=== PATIENT | female | born 1945 | race Caucasian/White ===

== ENCOUNTER → 2016-12-29 | Outpatient (CLI) | payer MEDICARE, OTHER ==
--- NOTE | 2016-12-30 07:55 | US ---
EXAMINATION TYPE: US carotid duplex BILAT DATE OF EXAM: 12/29/2016 4:50 PM COMPARISON: NONE CLINICAL HISTORY: I65.23 Stenosis of Bilat Carotid Artery. Patient states being in a 'brain fog' and feeling fatigue. EXAM MEASUREMENTS: RIGHT: Peak Systolic Velocity (PSV) cm/sec ----- Right CCA: 72.9 ----- Right ICA: 61.6 ----- Right ECA: 85.3 ICA/CCA ratio: 0.8 RIGHT: End Diastole cm/sec ----- Right CCA: 22.3 ----- Right ICA: 26.1 ----- Right ECA: 16.0 LEFT: Peak Systolic Velocity (PSV) cm/sec ----- Left CCA: 67.7 ----- Left ICA: 19.7 ----- Left ECA: 65.3 ICA/CCA ratio: 1.5 LEFT: End Diastole cm/sec ----- Left CCA: 19.7 ----- Left ICA: 103.4 ----- Left ECA: 65.3 VERTEBRALS (direction of flow): Right Vertebral: Antegrade Left Vertebral: Antegrade Small amount of posterior plaque in right bulb extending into prox ICA. Bilateral wall thickening. No elevated velocities or significant stenosis. IMPRESSION: I DO NOT SEE EVIDENCE OF A HEMODYNAMICALLY SIGNIFICANT STENOSIS IN EITHER CAROTID SYSTEM. Criteria for Assigning % of Stenosis / Diameter reduction (Estimation based on the indirect measurements of the internal carotid artery velocities (ICA PSV). 1. Normal (no stenosis)=ICA PSV < 125 cm/s: ratio < 2.0: ICA EDV<40 cm/s. 2. Less than 50% stenosis=ICA PSV < 125 cm/s: ratio < 2.0: ICA EDV<40 cm/s. 3. 50 to 69% stenosis=ICA PSV of 125 to 230 cm/s: ration 2.0 ? 4.0: ICA EDV 40-100 cm/s. 4. Greater than 70% stenosis to near occlusion= ICA PSV > 230 cm/s: ratio > 4.0: ICA EDV > 100 cm/s. 5. Near occlusion= ICA PSV velocities may be low or undetectable: variable ratio and ICA EDV. 6. Total occlusion=unable to detect flow.
== END | disposition home or self-care (01) ==
LOC: RADUSWWP 15:53
PROVIDERS: ATTEND Internal Medicine
DX: I65.23 Occlusion and stenosis of bilateral carotid arteries (principal)
CPT/HCPCS: 93880

== ENCOUNTER → 2019-06-29 | Outpatient (CLI) | payer MEDICARE, OTHER ==
--- NOTE | 2019-06-29 17:32 | CT ---
EXAMINATION TYPE: CT abdomen pelvis w con DATE OF EXAM: 06/29/2019 COMPARISON: HISTORY: diverticulitis CT DLP: 450.4 mGycm Automated exposure control for dose reduction was used. CONTRAST: CT scan of the abdomen pelvis is performed with IV Contrast, patient injected with 100 mL of Isovue 3 00. FINDINGS- LUNG BASES-there is an 8 and 6 mm nodule seen in the anterior segment of the right upper lobe. Dedica charles CT scan of the chest recommended. Additional subsegmental areas of consolidation are noted. Heart is enlarged.. LIVER/GB- No gross abnormality is appreciated. PANCREAS- No gross abnormality is seen. SPLEEN- No gross abnormality is seen. ADRENALS- No gross abnormality is seen. KIDNEYS/BLADDER- no hydronephrosis nephrolithiasis or renal mass. BOWEL-there is numerous diverticula seen with mild pericolonic inflammatory changes seen involving th e descending colon in a pattern compatible with acute diverticulitis. Mild thickening of the gastric antrum is nonspecific.. Report called by telephone to the referring clinician. LYMPH NODES- No greater than 1cm abdominal or pelvic lymph nodes areappreciated. OSSEOUS STRUCTURES-degenerative changes of the vertebral column. Arthropathy of the hips.. Multilevel facet arthropathy disc bulging with canal stenosis is identified at L4-L5. OTHER- no free fluid or free air. IMPRESSION- 1. Acute noncomplicated diverticulitis descending colon. 2. Degenerative changes involving the vertebral column greatest at L4-5. There is mixed sclerosis and lucent changes. Intraosseous or marrow occupying process not excluded consider bone scan.
== END | disposition home or self-care (01) ==
LOC: RADCTMAIN 12:57
PROVIDERS: ATTEND Internal Medicine
DX: K57.32 Diverticulitis of large intestine without perforation or abscess without bleeding (principal)
CPT/HCPCS: 74177; Q9967 ×2

== ENCOUNTER → 2020-12-03 | Outpatient (CLI) | payer MEDICARE, OTHER ==
--- NOTE | 2020-12-03 14:33 | XR ---
EXAMINATION TYPE: XR cervical spine comp DATE OF EXAM: 12/03/2020 COMPARISON: 10/14/2014 HISTORY: Pain TECHNIQUE: 5 view cervical spine FINDINGS: Degenerative disc changes with loss of disc height are present C4-5 C5-6 C6-7. Prevertebral space is normal. Anterior vertebral body spurring is present C4-C6. Posterior spinal lamellar line i s intact. Foraminal narrowing is present on the left at C6-7. Mild foraminal narrowing is present at C5-C6 on the right. Tip of the odontoid is limited due to overlying occiput. IMPRESSION: 1. Degenerative disc changes C4-5 through C6-7. 2. Foraminal narrowing C5-6 C6-7 discussed above. 3. Findings appear stable from 2014
== END ==
LOC: RADXRMAIN 13:53
PROVIDERS: ATTEND Internal Medicine
DX: M47.812 Spondylosis without myelopathy or radiculopathy, cervical region (principal); M99.71 Connective tissue and disc stenosis of intervertebral foramina of cervical region
CPT/HCPCS: 72050

== ENCOUNTER 2021-01-02 15:52 | Inpatient (IN) | payer MEDICARE, OTHER ==
[2021-01-02] MEDS ORDERED: FAMOTIDINE 20 MG/2 ML VIAL IV STA (17:19)
[2021-01-02] MEDS ORDERED: SODIUM CHLORIDE 0.9% 1,000 ML IV STA (17:19)
[2021-01-02] MEDS ORDERED: ONDANSETRON 4 MG/2 ML VIAL IVP STA (17:19)
--- NOTE | 2021-01-02 17:37 | XR ---
EXAMINATION TYPE: XR chest 1V DATE OF EXAM: 01/02/2021 COMPARISON: NONE HISTORY: Cough TECHNIQUE: Single view FINDINGS: There is some infiltrate and atelectasis right lower lobe. There is small area of infiltrat e and atelectasis left lower lobe. Upper lung dodson are clear. There are no hilar masses. There is n o heart failure. There is no pleural effusion. Bony thorax is intact. IMPRESSION: Bilateral lower lobe pneumonia and atelectasis. No heart failure.
[2021-01-02 17:58] LABS: Basophils % (A) 1 %; Eosinophils % (A) 0 %; HCT 40.5 % (34.0-46.0); HGB 14.5 gm/dL (11.4-16.0); Lymphocytes # (A) 0.9 k/uL (1.0-4.8); Lymphocytes % (A) 15 %; MCH 31.4 pg (25.0-35.0); MCHC 35.8 g/dL (31.0-37.0); MCV 87.6 fL (80.0-100.0); Mean Platelet Volume 8.5; Monocytes # (A) 0.3 k/uL (0-1.0); Monocytes % (A) 6 %; Neutrophils # (A) 4.4 k/uL (1.3-7.7); Neutrophils % (A) 76 %; Platelet Count 185 k/uL (150-450); RBC 4.62 m/uL (3.80-5.40); RDW 11.9 % (11.5-15.5); WBC 5.8 k/uL (3.8-10.6)
[2021-01-02 18:09] LABS: ALT 23 U/L (4-34); AST 54 U/L (14-36); African American GFR (CKD) >90 (>60 ml/min/1.73 sqM); Albumin 3.8 g/dL (3.5-5.0); Alkaline Phosphatase 80 U/L (38-126); Anion Gap 8 mmol/L; Blood Urea Nitrogen 24 mg/dL (7-17); C Reactive Protein 8.8 mg/dL (<1.0); Calcium 9.2 mg/dL (8.4-10.2); Carbon Dioxide 26 mmol/L (22-30); Chloride 103 mmol/L (98-107); Glucose 97 mg/dL (74-99); LDH 1261 U/L (313-618); Lipase 375 U/L (23-300); Non-African American GFR(CKD) 86 (>60 ml/min/1.73 sqM); Potassium 4.1 mmol/L (3.5-5.1); Sodium 137 mmol/L (137-145); Total Bilirubin 0.3 mg/dL (0.2-1.3); Total Protein 6.4 g/dL (6.3-8.2)
--- NOTE | 2021-01-02 19:56 | ED ---
URI HPI - General Source: patient Mode of arrival: ambulatory Limitations: no limitations <Radha Alvarez - Last Filed: 01/02/21 21:05> <Korin Alberts - Last Filed: 01/05/21 02:24> - General Chief Complaint: Upper Respiratory Infection Stated Complaint: Covid+, worsening symptoms Time Seen by Provider: 01/02/21 17:06 - History of Present Illness Initial Comments: 75-year-old female patient presents to the emergency department today for evaluation of worsening COVID-19 symptoms. Patient is reporting fatigue and body aches. She also reporting significant nausea and vomiting. Denies diarrhea. States she's been unable to eat or drink. States she does have a cough and mild shortness of breath. Denies any fevers. States she started having symptoms approximately 11-12 days ago, maybe more. Tested positive for COVID on 12/29/20. Denies taking any medication for her symptoms. Denies abdominal pain. Denies any urinary symptoms. Patient denies any recent rash, cough, shortness of breath, chest pain, abdominal pain, constipation, back pain, numbness, tingling, dizziness, weakness, hematuria, dysuria, urinary urgency, urinary frequency, headache, visual changes, or any other complaints. (Radha Alvarez) - Related Data Home Medications Medication Instructions Recorded Confirmed Baclofen [Lioresal] 10 mg PO BID 01/02/21 01/02/21 Cholecalciferol [Vitamin D3 (25 25 mcg PO DAILY 01/02/21 01/02/21 Mcg = 1000 Iu)] Gabapentin 600 mg PO HS 01/02/21 01/02/21 Gabapentin [Neurontin] 300 mg PO DAILY PRN 01/02/21 01/02/21 Glucosam/Solo-Msm1/C/Filippo/Bosw 1 tab PO DAILY 01/02/21 01/02/21 [Oacyikuxzft-Dtfadzqhsin-SUV Tb] Levothyroxine Sodium [Synthroid] 75 mcg PO DAILY 01/02/21 01/02/21 Multivitamins, Thera [Multivitamin 1 tab PO DAILY 01/02/21 01/02/21 (formulary)] Zinc 50 mg PO DAILY 01/02/21 01/02/21 Allergies Allergy/AdvReac Type Severity Reaction Status Date / Time No Known Allergies Allergy Verified 01/02/21 19:22 Review of Systems ROS Other: All systems not noted in ROS Statement are negative. <Radha Alvarez - Last Filed: 01/02/21 21:05> ROS Other: All systems not noted in ROS Statement are negative. <Korin Alberts Ita - Last Filed: 01/05/21 02:24> ROS Statement: Those systems with pertinent positive or pertinent negative responses have been documented in the HPI. Past Medical History Past Medical History: Thyroid Disorder History of Any Multi-Drug Resistant Organisms: None Reported Past Surgical History: Hysterectomy Past Psychological History: Anxiety Smoking Status: Never smoker Past Alcohol Use History: None Reported Past Drug Use History: None Reported <Radha Alvarez - Last Filed: 01/02/21 21:05> General Exam Limitations: no limitations General appearance: alert, in no apparent distress, other (This is a well- developed, well-nourished adult female patient in no acute distress. Vital signs upon presentation are temperature 98.4F, pulse 101, respirations 18, blood pressure 129/72, pulse ox 95% on room air.) Eye exam: Present: normal appearance, PERRL, EOMI. Absent: scleral icterus, conjunctival injection, periorbital swelling ENT exam: Present: normal exam, normal oropharynx, mucous membranes moist Respiratory exam: Present: normal lung sounds bilaterally. Absent: respiratory distress, wheezes, rales, rhonchi, stridor Cardiovascular Exam: Present: regular rate, normal rhythm, normal heart sounds. Absent: systolic murmur, diastolic murmur, rubs, gallop, clicks GI/Abdominal exam: Present: soft, normal bowel sounds. Absent: distended, tenderness, guarding, rebound, rigid Neurological exam: Present: alert, oriented X3, CN II-XII intact Psychiatric exam: Present: normal affect, normal mood Skin exam: Present: warm, dry, intact, normal color. Absent: rash <Radha Alvarez - Last Filed: 01/02/21 21:05> Course Vital Signs 01/02/21 01/02/21 01/02/21 16:05 19:59 21:20 Temperature 98.4 F 100.8 F H 98.0 F Pulse Rate 101 H 99 Pulse Rate [ 81 Left Radial] Respiratory 18 18 19 Rate Blood Pressure 129/72 143/66 Blood Pressure 126/58 [Left Arm] O2 Sat by Pulse 95 99 95 Oximetry 01/02/21 21:51 Temperature 98.2 F Pulse Rate 92 Pulse Rate [ Left Radial] Respiratory 18 Rate Blood Pressure 121/63 Blood Pressure [Left Arm] O2 Sat by Pulse 95 Oximetry Medical Decision Making - Lab Data Result diagrams: 01/02/21 17:37 01/02/21 17:37 - Radiology Data Radiology results: report reviewed, image reviewed <Radha Alvarez - Last Filed: 01/02/21 21:05> - Lab Data Result diagrams: 01/04/21 05:59 01/04/21 05:59 <Korin Alberts - Last Filed: 01/05/21 02:24> - Medical Decision Making 75-year-old female patient presents to the emergency department today reporting worsening nausea and vomiting as well as fatigue and body aches. Physical examination is unremarkable. Abdomen soft and nontender. Lungs are clear to auscultation. Vital signs are satisfactory oxygen saturations between 95 and 99% on room air. Labs reviewed showed elevated CRP and LDH. Elevated BUN at 24. Chest xray showed bilateral lower lobe pneumonia. She was given IV fluids and antiemetics in the department. Reports being hungry, tolerating oral intake. Dr. Abreu became aware of patient and requested notification once test results were in. I discussed the case with him. He would like her admitted, add d-dimer, CTA chest, give dexamethasone. My attending is Dr. Alberts. (Radha Alvarez) I was available for consultation in the emergency department. The history and physical exam were done by the midlevel provider. I was consulted for this patients care. I reviewed the case with the midlevel provider and based on their presentation of the patient, I agree with the assessment, medical decision making and plan of care as documented. Chart was dictated using [employer] dictation software. Attempts were made to correct any dictation errors however some typographical errors may persist. Patient was seen during a national state of emergency due to the Covid-19 pandemic. (Korin Alberts) - Lab Data Lab Results 01/02/21 01/02/21 01/02/21 Range/Units 17:37 17:37 17:37 WBC 5.8 (3.8-10.6) k/uL RBC 4.62 (3.80-5.40) m/uL Hgb 14.5 (11.4-16.0) gm/dL Hct 40.5 (34.0-46.0) % MCV 87.6 (80.0-100.0) fL MCH 31.4 (25.0-35.0) pg MCHC 35.8 (31.0-37.0) g/dL RDW 11.9 (11.5-15.5) % Plt Count 185 (150-450) k/uL MPV 8.5 Neutrophils % 76 % Lymphocytes % 15 % Monocytes % 6 % Eosinophils % 0 % Basophils % 1 % Neutrophils # 4.4 (1.3-7.7) k/uL Lymphocytes # 0.9 L (1.0-4.8) k/uL Monocytes # 0.3 (0-1.0) k/uL Eosinophils # 0.0 (0-0.7) k/uL Basophils # 0.0 (0-0.2) k/uL D-Dimer (<0.60) mg/L FEU Sodium 137 (137-145) mmol/L Potassium 4.1 (3.5-5.1) mmol/L Chloride 103 (98-107) mmol/L Carbon Dioxide 26 (22-30) mmol/L Anion Gap 8 mmol/L BUN 24 H (7-17) mg/dL Creatinine 0.67 (0.52-1.04) mg/dL Est GFR (CKD-EPI)AfAm >90 (>60 ml/min/1.73 sqM) Est GFR (CKD-EPI)NonAf 86 (>60 ml/min/1.73 sqM) Glucose 97 (74-99) mg/dL Plasma Lactic Acid Eric 0.7 (0.7-2.0) mmol/L Calcium 9.2 (8.4-10.2) mg/dL Total Bilirubin 0.3 (0.2-1.3) mg/dL AST 54 H (14-36) U/L ALT 23 (4-34) U/L Alkaline Phosphatase 80 (38-126) U/L Lactate Dehydrogenase 1261 H (313-618) U/L C-Reactive Protein 8.8 H (<1.0) mg/dL Total Protein 6.4 (6.3-8.2) g/dL Albumin 3.8 (3.5-5.0) g/dL Lipase 375 H (23-300) U/L Urine Color Urine Appearance (Clear) Urine pH (5.0-8.0) Ur Specific [place] (1.001-1.035) Urine Protein (Negative) Urine Glucose (UA) (Negative) Urine Ketones (Negative) Urine Blood (Negative) Urine Nitrite (Negative) Urine Bilirubin (Negative) Urine Urobilinogen (<2.0) mg/dL Ur Leukocyte Esterase (Negative) Coronavirus (PCR) (Not Detectd) 01/02/21 01/02/21 01/02/21 Range/Units 17:43 20:19 20:19 WBC (3.8-10.6) k/uL RBC (3.80-5.40) m/uL Hgb (11.4-16.0) gm/dL Hct (34.0-46.0) % MCV (80.0-100.0) fL MCH (25.0-35.0) pg MCHC (31.0-37.0) g/dL RDW (11.5-15.5) % Plt Count (150-450) k/uL MPV Neutrophils % % Lymphocytes % % Monocytes % % Eosinophils % % Basophils % % Neutrophils # (1.3-7.7) k/uL Lymphocytes # (1.0-4.8) k/uL Monocytes # (0-1.0) k/uL Eosinophils # (0-0.7) k/uL Basophils # (0-0.2) k/uL D-Dimer 1.13 H (<0.60) mg/L FEU Sodium (137-145) mmol/L Potassium (3.5-5.1) mmol/L Chloride (98-107) mmol/L Carbon Dioxide (22-30) mmol/L Anion Gap mmol/L BUN (7-17) mg/dL Creatinine (0.52-1.04) mg/dL Est GFR (CKD-EPI)AfAm (>60 ml/min/1.73 sqM) Est GFR (CKD-EPI)NonAf (>60 ml/min/1.73 sqM) Glucose (74-99) mg/dL Plasma Lactic Acid Eric (0.7-2.0) mmol/L Calcium (8.4-10.2) mg/dL Total Bilirubin (0.2-1.3) mg/dL AST (14-36) U/L ALT (4-34) U/L Alkaline Phosphatase (38-126) U/L Lactate Dehydrogenase (313-618) U/L C-Reactive Protein (<1.0) mg/dL Total Protein (6.3-8.2) g/dL Albumin (3.5-5.0) g/dL Lipase (23-300) U/L Urine Color Yellow Urine Appearance Clear (Clear) Urine pH 6.0 (5.0-8.0) Ur Specific [place] 1.019 (1.001-1.035) Urine Protein Negative (Negative) Urine Glucose (UA) Negative (Negative) Urine Ketones 2+ H (Negative) Urine Blood Negative (Negative) Urine Nitrite Negative (Negative) Urine Bilirubin Negative (Negative) Urine Urobilinogen <2.0 (<2.0) mg/dL Ur Leukocyte Esterase Negative (Negative) Coronavirus (PCR) Detected A (Not Detectd) - Radiology Data CT chest angiography of a pulmonary embolus and was obtained. Report was reviewed in its entirety. Impression by Dr. Pop shows no evidence of pulmonary embolism. Cardiomegaly. Pulmonary interstitial pneumonia. Mild mediastinal and bronchial adenopathy is likely inflammatory. One view x-ray of the chest is obtained. Report was reviewed in its entirety. Impression by Dr. Pop shows bilateral lower lobe pneumonia and atelectasis. No heart failure. (Radha Alvarez) Disposition Decision to Admit Reason: Admit from EC Decision Date: 01/02/21 Decision Time: 20:21 <Radha Alvarez - Last Filed: 01/02/21 21:05> <Korin Alberts - Last Filed: 01/05/21 02:24> Clinical Impression: COVID-19, Vomiting Disposition: ADMITTED IP TO THIS [facility] Condition: Serious
[2021-01-02] MEDS ORDERED: ACETAMINOPHEN TAB 325 MG TAB PO STA (20:03)
[2021-01-02] MEDS ORDERED: NALOXONE 0.4 MG/ML 1 ML VIAL IV PRN (20:17)
[2021-01-02] MEDS ORDERED: ONDANSETRON 4 MG/2 ML VIAL IVP PRN (20:17)
[2021-01-02] MEDS ORDERED: ACETAMINOPHEN TAB 325 MG TAB PO PRN (20:17)
[2021-01-02] MEDS ORDERED: DEXAMETHASONE SOD PHOSPHATE 10 MG/ML 1 ML VIAL IV STA (20:18)
[2021-01-02 20:32] LABS: Appearance,Urine Clear (Clear); Bilirubin,Urine Negative (Negative); Blood,Urine Negative (Negative); Color,Urine Yellow; Glucose,Urine (UA) Negative (Negative); Ketones,Urine 2+ (Negative); Leukocyte Esterase,Urine Negative (Negative); Nitrite,Urine Negative (Negative); Protein,Urine Negative (Negative); Specific Gravity,Urine 1.019 (1.001-1.035); Urobilinogen,Urine <2.0 mg/dL (<2.0)
--- NOTE | 2021-01-02 21:00 | CT ---
EXAMINATION TYPE: CT chest angio for PE DATE OF EXAM: 01/02/2021 COMPARISON: None HISTORY: Covid +. Difficulty breathing. CT DLP: 204.9 mGycm Automated exposure control for dose reduction was used. CONTRAST: Performed with IV Contrast, patient injected with 100 mL of Isovue 370. There are 3-D post processed images. There is some pleural thickening and minimal nodular infiltrate at the lung apices. There is patchy g roundglass interstitial infiltrate in the mid and lower lung dodson. Heart is enlarged. There is no p ericardial effusion. Thoracic aorta is intact. There is no aneurysm or dissection. The ascending aorta measures 3.4 cm. Th ere are a few bronchial lymph nodes up to 1 cm. There are paratracheal lymph nodes up to 1.5 cm. There is normal contrast opacification of the pulmonary arteries. There are no filling defects. There is no pleural effusion. Upper abdominal soft tissues are intact. The thoracic spine is intact. There is no compression fracture. Sternum is intact. IMPRESSION: No evidence of pulmonary embolism. Cardiomegaly. Pulmonary interstitial pneumonia. Mild mediastinal and bronchial adenopathy is likely i nflammatory.
[2021-01-02] MEDS: ASCORBIC ACID 500 MG TAB PO SCH (21:48)
[2021-01-02] MEDS: SODIUM CHLORIDE 0.9% 1,000 ML IV SCH (21:48)
[2021-01-03] MEDS: DEXAMETHASONE SOD PHOSPHATE 10 MG/ML 1 ML VIAL IV SCH (08:43)
[2021-01-03] MEDS: ASCORBIC ACID 500 MG TAB PO SCH ×2 (08:43→19:31)
[2021-01-03] MEDS: ZINC SULFATE 220 MG CAP PO SCH (08:44)
[2021-01-03] MEDS ORDERED: CHOLECALCIFEROL 25 MCG (1000 IU) TABLET PO SCH (09:00)
[2021-01-03] MEDS ORDERED: GABAPENTIN 300 MG CAP PO PRN (09:06)
[2021-01-03] MEDS ORDERED: AZITHROMYCIN 500 MG in SODIUM CHLORIDE 0.9% 250 ML IVPB SCH (09:15)
--- NOTE | 2021-01-03 10:24 | P.HPIM ---
History of Present Illness H&P Date: 01/03/21 Chief Complaint: Covid pneumonia. HISTORY OF PRESENT ILLNESS: This is a 75-year-old female one of my patient with a previous medical history significant for hypothyroidism, history of spondylosis of the cervical spine as well as lumbar spine, fibromyalgia, patient developed to have a significant weakness associated with increased bowel pain nausea vomiting and d iarrhea, she has loss of taste and smell she was checked with the SARS-COV2 PCR on Monday that came back positive on , patient was started on zinc 220 mg once every day, vitamin C 500 mg once every day vitamin D 1000 units once every day, she was doing fine drinking enough fluid, however she became quite weak and she ended up coming to the emergency department at [facility] for evaluation her d-dimer was elevated she underwent CT angiography of the chest that showed no evidence of pulmonary embolism however it did show interstitial pneumonia o suggestive of Covid pneumonia, she was started on Zithromax 500 mg IV piggyback every 24 hours, Decadron 6 mg IV push every 24 mil rs, she was placed in droplet precautions with eye protection, pulmonary consultation was obtained as well. REVIEW OF SYSTEMS: Constitutional: No documented fever, no chills, no night sweats. No weight change. Positive for weakness, positive for fatigue. HEENT: No headache. No blurred vision or double vision, no loss of vision. No loss of Hearing, no ringing in the ears, no dizziness. No nasal drainage or congestion. No epistaxis. No sore throat. Respiratory: No shortness of breath, no cough, no sputum production. No wheezing. Reports dyspnea with activity. Cardiovascular: No chest pain, no lower extremity edema. No palpitations. No paroxysmal nocturnal dyspnea. No orthopnea. No lightheadedness or dizziness. No syncopal episodes. Gastrointestinal :Reports abdominal pain. No nausea, vomiting. Positive for diarrhea diarrhea. No constipation. No bloody or tarry stools ,reports loss of appetite. Genitourinary: No dysuria, increased frequency, urgency. No urinary retention. Musculoskeletal: No myalgias. No muscle weakness, no gait dysfunction, no frequent falls. No back pain. No neck pain. Integumentary: No wounds, no lesions. No rash or pruritus. No unusual bruising. No change in hair or nails. Neurologic: No aphasia. No facial droop. No change in mentation. No head injury. No headache. No paralysis. No paresthesia. Psychiatric: No depression. No anxiety. No mood swings. Endocrine: No abnormal blood sugars. No weight change. PAST MEDICAL HISTORY: 1. Hypothyroidism. 2. Fibromyalgia. 3. Spondylosis of the cervical spine and the lumbar spine. 4. Vitamin D deficiency. PAST SURGICAL HISTORY: Hysterectomy. SOCIAL HISTORY: Patient denies any history of smoking, she denies any history of drinking, she denies any drug use or abuse, she left her due to severe case of schizophrenia, she currently lives with significant other, and she is the primary caregiver for him. FAMILY HISTORY: Father at age of 90 from COPD as well as from chronic alcohol use and dependence, mother at the age of 88 from old age, patient had 2 brothers one of them at age of 83 from diabetes and coronary artery disease the oth er one suffers from chronic pain syndrome, patient has one sister with COPD, patient has 2 daughters and 1 son no major medical problems. PHYSICAL EXAMINATION: General: HEENT: Head is atraumatic, normocephalic, pupils were equal round reactive to light and recommendation, extraocular muscle movement were intact, sclera nonicteric, conjunctivae were pale, mucous membranes of the mouth are somewhat dry. Neck: Supple, no JVP, normal carotid upstroke bilaterally, no lymphadenopathy. Chest: Decreased breath sounds at the bases, few rhonchi, no expiratory wheezes, no chest wall tenderness, no intercostal retractions. Heart: First heart sound is normal, second heart sounds normal, there is no ga llop or murmur. Abdomen: Soft, nontender, nondistended, positive bowel sounds, there is no hepatomegaly. Extremities: There is no edema no calf tenderness DP +2 bilaterally. Neurologic examination: Patient is awake alert and oriented X 3, cranial nerves II-12 appear grossly intact, muscle power were 5 out of 5 in upper extremities and 5 out of 5 in bilateral lower extremities, deep tendon reflexes normal bilaterally. ASSESSMENT AND PLAN: 1. COVID-19 pneumonia. Droplet precautions with eye protection, continue zinc 220 mg orally once every day vitamin C 500 mg orally once every day, vitamin D 1000 units once every day, Decadron 6 mg IV push daily, Zithromax 500 mg IV piggyback daily, pulmonary consultation, monitor the patient very closely over the next 24 hours. 2. Hypothyroidism. Continue patient on Synthroid 75 MCG orally once every day. 3. Fibromyalgia. Continue gabapentin 600 mg orally bedtime and 300 mg the morning. 4. Spondylosis of the cervical spine as well as lumbar spine. Continue gabapentin 600 mg at bedtime and 300 mg in the morning. 5. Vitamin D deficiency. Continue vitamin D supplement. 6. DVT prophylaxis. Continue Lovenox 40 mg subcutaneously every 24 hours. 7. GI prophylaxis. Pepcid 20 mg orally twice every day. 8. Admit to inpatient. Estimated length of stay 2 midnights. 9. Patient is full code. Past Medical History Past Medical History: Thyroid Disorder History of Any Multi-Drug Resistant Organisms: None Reported Past Surgical History: Hysterectomy Past Anesthesia/Blood Transfusion Reactions: No Reported Reaction Past Psychological History: Anxiety Smoking Status: Never smoker Past Alcohol Use History: None Reported Past Drug Use History: None Reported Medications and Allergies Home Medications Medication Instructions Recorded Confirmed Type Baclofen [Lioresal] 10 mg PO BID 01/02/21 01/02/21 History Cholecalciferol [Vitamin D3 (25 25 mcg PO DAILY 01/02/21 01/02/21 History Mcg = 1000 Iu)] Gabapentin 600 mg PO HS 01/02/21 01/02/21 History Gabapentin [Neurontin] 300 mg PO DAILY PRN 01/02/21 01/02/21 History Glucosam/[place]-Msm1/C/Filippo/Bosw 1 tab PO DAILY 01/02/21 01/02/21 History [Piboibcpxqx-Btenxaqkvgc-HAK Tb] Levothyroxine Sodium [Synthroid] 75 mcg PO DAILY 01/02/21 01/02/21 History Multivitamins, Thera [Multivitamin 1 tab PO DAILY 01/02/21 01/02/21 History (formulary)] Zinc 50 mg PO DAILY 01/02/21 01/02/21 History Allergies Allergy/AdvReac Type Severity Reaction Status Date / Time No Known Allergies Allergy Verified 01/02/21 19:22 Physical Exam Vitals: Vital Signs Temp Pulse Pulse Resp BP BP Pulse Ox 01/03/21 08:00 98.0 F 94 16 123/60 81 L 01/03/21 02:00 97.8 F 78 19 124/60 94 L 01/02/21 22:57 19 01/02/21 21:51 98.2 F 92 18 121/63 95 01/02/21 21:20 98.0 F 81 19 126/58 95 01/02/21 19:59 100.8 F H 99 18 143/66 99 01/02/21 16:05 98.4 F 101 H 18 129/72 95 Intake and Output 01/02/21 01/03/21 01/03/21 22:59 06:59 14:59 Other: Voiding Method Toilet # Voids 1 Weight 60.781 kg Results CBC & Chem 7: 01/02/21 17:37 01/02/21 17:37 Labs: Abnormal Lab Results - Last 24 Hours (Table) 01/02/21 01/02/21 01/02/21 Range/Units 17:37 17:37 17:43 Lymphocytes # 0.9 L (1.0-4.8) k/uL D-Dimer (<0.60) mg/L FEU BUN 24 H (7-17) mg/dL AST 54 H (14-36) U/L Lactate Dehydrogenase 1261 H (313-618) U/L C-Reactive Protein 8.8 H (<1.0) mg/dL Lipase 375 H (23-300) U/L Urine Ketones 2+ H (Negative) Coronavirus (PCR) (Not Detectd) 01/02/21 01/02/21 Range/Units 20:19 20:19 Lymphocytes # (1.0-4.8) k/uL D-Dimer 1.13 H (<0.60) mg/L FEU BUN (7-17) mg/dL AST (14-36) U/L Lactate Dehydrogenase (313-618) U/L C-Reactive Protein (<1.0) mg/dL Lipase (23-300) U/L Urine Ketones (Negative) Coronavirus (PCR) Detected A (Not Detectd) Thrombosis Risk Factor Assmnt - Choose All That Apply Any of the Below Risk Factors Present?: No Other Risk Factors: No Other congenital or acquired thrombophilia - If yes, enter type in comment: No Thrombosis Risk Factor Assessment Level: Very Low Risk
[2021-01-03] MEDS: BACLOFEN 10 MG TAB PO SCH ×2 (10:54→19:31)
[2021-01-03] MEDS: MULTIVITAMINS, THERA 1 EACH TAB PO SCH (10:54)
[2021-01-03] MEDS: SODIUM CHLORIDE 0.9% 1,000 ML IV SCH ×2 (12:19→23:07)
[2021-01-03] MEDS: ALBUTEROL HFA INHALER INHALATION SCH ×3 (12:44→19:09)
--- NOTE | 2021-01-03 15:30 | P.CNPUL ---
History of Present Illness Consult date: 01/03/21 Reason for consult: dyspnea, hypoxemia, pneumonia History of present illness: 75-year-old female patient hospitalized for COVID-19 related pneumonia and currently she is on Decadron. Pulmonary consultation was requested. The patient was diagnosed being positive on 12/31/2020 at the primary care physician's office. She was given vitamin supplements. She became progressively more weak and she had some increased shortness of breath and for that physician coming into the hospital. CT of the chest showed no evidence of any pulmonary embolism. There was some limited groundglass changes in lung bases bilaterally and the patient was started on Decadron. At one point, pulse ox abdominal to 81% and currently she is at 92% on room air oxygen. Her d-dimer is at 1.13, her LDH level is 1261 and the CRP is at 6.4. She does have lymphopenia on her blood work with a white cell count of 5.8. She is on Decadron. She is on Lovenox for DVT prophylaxis. Review of Systems Constitutional: Reports fatigue, Reports poor appetite, Reports weakness Eyes: denies as per HPI, denies blurred vision, denies bulging eye, denies decreased vision, denies diplopia, denies discharge, denies dry eye, denies irritation, denies itching, denies pain, denies photophobia, denies loss of noris pheral vision, denies loss of vision, denies tunnel vision/blind spots Ears: deny: decreased hearing, ear discharge, earache, tinnitus Ears, nose, mouth and throat: Reports as per HPI Breasts: absent: as per HPI, change in shape, gynecomastia, masses, nipple discharge, pain, skin changes, swelling Cardiovascular: Reports dyspnea on exertion Respiratory: Reports as per HPI Gastrointestinal: Reports as per HPI Genitourinary: Reports as per HPI Menstruation: Reports as per HPI Musculoskeletal: Reports as per HPI Musculoskeletal: absent: ankle pain, ankle stiffness, ankle swelling, as per HPI, elbow pain, elbow stiffness, elbow swelling, foot pain, foot stiffness, foot swelling, hand pain, hand stiffness, hand swelling, hip pain, hip stiffness, hip swelling, knee pain, knee stiffness, knee swelling, shoulder pain, shoulder stiffness, shoulder swelling, wrist pain, wrist stiffness, wrist swelling Integumentary: Reports as per HPI Neurological: Reports weakness Psychiatric: Reports as per HPI Endocrine: Reports as per HPI Hematologic/Lymphatic: Reports as per HPI Allergic/Immunologic: Reports as per HPI Past Medical History Past Medical History: Thyroid Disorder Additional Past Medical History / Comment(s): Fibromyalgia, spondylosis of the cervical spine and the lumbar spine, vitamin D deficiency. History of Any Multi-Drug Resistant Organisms: None Reported Past Surgical History: Hysterectomy Past Anesthesia/Blood Transfusion Reactions: No Reported Reaction Past Psychological History: Anxiety Smoking Status: Never smoker Past Alcohol Use History: None Reported Past Drug Use History: None Reported Medications and Allergies Home Medications Medication Instructions Recorded Confirmed Type Baclofen [Lioresal] 10 mg PO BID 01/02/21 01/02/21 History Cholecalciferol [Vitamin D3 (25 25 mcg PO DAILY 01/02/21 01/02/21 History Mcg = 1000 Iu)] Gabapentin 600 mg PO HS 01/02/21 01/02/21 History Gabapentin [Neurontin] 300 mg PO DAILY PRN 01/02/21 01/02/21 History Glucosam/Solo-Msm1/C/Filippo/Bosw 1 tab PO DAILY 01/02/21 01/02/21 History [Qcbzrungdxc-Hrpineopzde-GYF Tb] Levothyroxine Sodium [Synthroid] 75 mcg PO DAILY 01/02/21 01/02/21 History Multivitamins, Thera [Multivitamin 1 tab PO DAILY 01/02/21 01/02/21 History (formulary)] Zinc 50 mg PO DAILY 01/02/21 01/02/21 History Allergies Allergy/AdvReac Type Severity Reaction Status Date / Time No Known Allergies Allergy Verified 01/02/21 19:22 Physical Exam Vitals: Vital Signs Temp Pulse Pulse Pulse Resp BP BP 01/03/21 13:45 98.0 F 93 16 141/68 01/03/21 08:00 98.0 F 94 21 123/60 01/03/21 02:00 97.8 F 78 19 124/60 01/02/21 22:57 19 01/02/21 21:51 98.2 F 92 18 121/63 01/02/21 21:20 98.0 F 81 19 126/58 01/02/21 19:59 100.8 F H 99 18 143/66 01/02/21 16:05 98.4 F 101 H 18 129/72 Pulse Ox 01/03/21 13:45 94 L 01/03/21 08:00 81 L 01/03/21 02:00 94 L 01/02/21 22:57 01/02/21 21:51 95 01/02/21 21:20 95 01/02/21 19:59 99 01/02/21 16:05 95 Intake and Output 01/02/21 01/03/21 01/03/21 22:59 06:59 14:59 Other: Voiding Method Toilet # Voids 1 Weight 60.781 kg HEENT: Head is atraumatic, normocephalic, pupils were equal round reactive to light and recommendation, extraocular muscle movement were intact, sclera nonicteric, conjunctivae were pale, mucous membranes of the mouth are somewhat dry. Head exam was generally normal. There was no scleral icterus or corneal arcus. Mucous membranes were moist. Neck: Supple, no JVP, normal carotid upstroke bilaterally, no lymphadenopathy. Chest: Decreased breath sounds at the bases, few rhonchi, no expiratory wheezes, no chest wall tenderness, no intercostal retractions. Heart: First heart sound is normal, second heart sounds normal, there is no gallop or murmur. Abdomen: Soft, nontender, nondistended, positive bowel sounds, there is no hepatomegaly. Extremities: Examination of the extremities revealed easily palpable radial, femoral and pedal pulses. There was no cyanosis, clubbing or edema. Neurologic examination: Neurologically, the patient is awake and alert and the patient does not have any focal neurological deficit. Cranial nerves are essentially intact. Results - Laboratory Findings CBC and BMP: 01/02/21 17:37 01/02/21 17:37 PT/INR, D-dimer D-Dimer 1.13 mg/L FEU (<0.60) H 01/02/21 20:19 Abnormal lab findings: Abnormal Labs 01/02/21 01/02/21 01/02/21 17:37 17:37 17:43 Lymphocytes # 0.9 L D-Dimer BUN 24 H AST 54 H Lactate Dehydrogenase 1261 H C-Reactive Protein 8.8 H Lipase 375 H Urine Ketones 2+ H Coronavirus (PCR) 01/02/21 01/02/21 20:19 20:19 Lymphocytes # D-Dimer 1.13 H BUN AST Lactate Dehydrogenase C-Reactive Protein Lipase Urine Ketones Coronavirus (PCR) Detected A - Diagnostic Findings Chest x-ray: image reviewed CT scan - chest: image reviewed Assessment and Plan Plan: 1 acute bilateral COVID-19 related pneumonia. The patient is limited groundglass changes lung bases bilaterally consistent with COVID-19 related pneumonia. The patient was hypoxic at the time of admission with a pulse as low as 81%. Currently on room air with a pulse ox in the order of 92%. Diagnosis was established on 12/31/2020 2 shortness of breath secondary to above 3 constitutional symptoms secondary to above 4 lymphopenia secondary to above 5 spondylosis of the cervical and lumbar spine 6 fibromyalgia 7 hypothyroidism Plan Options supplementation if needed to maintain a saturation above 90%. Agree to Decadron 6 mg IV every 24 hours, completed total of 7-10 day course Lovenox subcu for DVT prophylaxis The patient will not qualify for Remdesivir as long as she is currently on room air oxygen. continue vitamin supplements check pro calcitonin level antibiotics can be discontinued Continue the rest of the supportive care which includes vitamin C, vitamin D and zinc supplements. Overall condition is stable. Contact us back if there is any worsening otherwise pulmonary critical care services will sign off.
[2021-01-03] MEDS: FAMOTIDINE 20 MG TAB PO SCH (19:31)
[2021-01-03] MEDS: GABAPENTIN 300 MG CAP PO SCH (19:31)
[2021-01-04] MEDS: LEVOTHYROXINE 75 MCG TAB PO SCH (05:29)
[2021-01-04] MEDS: ALBUTEROL HFA INHALER INHALATION SCH ×4 (08:13→21:07)
[2021-01-04] MEDS: ASCORBIC ACID 500 MG TAB PO SCH ×2 (08:19→19:14)
[2021-01-04] MEDS: FAMOTIDINE 20 MG TAB PO SCH ×2 (08:20→19:13)
[2021-01-04] MEDS: ZINC SULFATE 220 MG CAP PO SCH (08:20)
[2021-01-04] MEDS: BACLOFEN 10 MG TAB PO SCH ×2 (08:20→19:13)
[2021-01-04] MEDS: MULTIVITAMINS, THERA 1 EACH TAB PO SCH (08:20)
[2021-01-04] MEDS: ENOXAPARIN 40 MG/0.4 ML SYRINGE SQ SCH (08:21)
--- NOTE | 2021-01-04 08:27 | P.PN ---
Subjective Progress Note Date: 01/04/21 HISTORY OF PRESENT ILLNESS: This is a 75-year-old female one of my patient with a previous medical history significant for hypothyroidism, history of spondylosis of the cervical spine as well as lumbar spine, fibromyalgia, patient developed to have a significant weakness associated with increased bowel pain nausea vomiting and diarrhea, she has loss of taste and smell she was checked with the SARS-COV2 PCR on Monday that came back positive on , patient was started on zinc 220 mg once every day, vitamin C 500 mg once every day vitamin D 1000 units once every day, she was doing fine drinking enough fluid, however she became quite weak and she ended up coming to the emergency department at [facility] for evaluation her d-dimer was elevated she underwent CT angiography of the chest that showed no evidence of pulmonary embolism however it did show interstitial pneumonia o suggestive of Covid pneumonia, she was started on Zithromax 500 mg IV piggyback every 24 hours, Decadron 6 mg IV push every 24 hours, she was placed in droplet precautions with eye protection, pulmonary consultation was obtained as well. 01/04: Patient states she has some nausea. No diarrhea, no emesis. She is drinking lots of fluid. She denies any cough, sputum production, no fever or ch ills. Patient has been seen by pulmonary medicine with recommendations for Decadron 6 mg IV every 24 hours for 7-10 day course, continue Lovenox. She does not qualify for Remdesivir, antibiotics can be discontinued. Ulnar medicine has signed off her case. She has been afebrile, heart rate 93, blood pressure 134/71, pulse ox 92-95% on room air. Repeat blood work reveals REVIEW OF SYSTEMS: Constitutional: No documented fever, no chills, no night sweats. No weight change. Positive for weakness, positive for fatigue. HEENT: No headache. No blurred vision or double vision, no loss of vision. No loss of Hearing, no ringing in the ears, no dizziness. No nasal drainage or congestion. No epistaxis. No sore throat. Respiratory: No shortness of breath, no cough, no sputum production. No wheezing. Reports dyspnea with activity. Cardiovascular: No chest pain, no lower extremity edema. No palpitations. No paroxysmal nocturnal dyspnea. No orthopnea. No lightheadedness or dizziness. No syncopal episodes. Gastrointestinal : Denies abdominal pain. Reports nausea, denies vomiting. Denies diarrhea. No constipation. No bloody or tarry stools ,reports loss of appetite. Genitourinary: No dysuria, increased frequency, urgency. No urinary retention. Musculoskeletal: No myalgias. No muscle weakness, no gait dysfunction, no frequent falls. No back pain. No neck pain. Integumentary: No wounds, no lesions. No rash or pruritus. No unusual bruising. No change in hair or nails. Neurologic: No aphasia. No facial droop. No change in mentation. No head injury. No headache. No paralysis. No paresthesia. Psychiatric: No depression. No anxiety. No mood swings. Endocrine: No abnormal blood sugars. No weight change. PHYSICAL EXAMINATION: General: This is a 75-year-old female patient. She is resting in bed appears to be in no acute distress. HEENT: Head is atraumatic, normocephalic, pupils were equal round reactive to light and recommendation, extraocular muscle movement were intact, sclera nonicteric, conjunctivae were pale, mucous membranes of the mouth are somewhat dry. Neck: Supple, no JVP, normal carotid upstroke bilaterally, no lymphadenopathy. Chest: Decreased breath sounds at the bases, few rhonchi, no expiratory wheezes, no chest wall tenderness, no intercostal retractions. Heart: First heart sound is normal, second heart sounds normal, there is no gallop or murmur. Abdomen: Soft, nontender, nondistended, positive bowel sounds, there is no hepatomegaly. Extremities: There is no edema no calf tenderness DP +2 bilaterally. Neurologic examination: Patient is awake alert and oriented X 3, cranial nerves II-12 appear grossly intact, muscle power were 5 out of 5 in upper extremities and 5 out of 5 in bilateral lower extremities, deep tendon reflexes normal bilaterally. ASSESSMENT AND PLAN: 1. COVID-19 pneumonia. Droplet precautions with eye protection, continue zinc 220 mg orally once every day vitamin C 500 mg orally once every day, vitamin D 1000 units once every day, Decadron 6 mg IV push daily, Zithromax will be discontinued, pulmonary consultation appreciated, monitor the patient very closely over the next 24 hours. 2. Hypothyroidism. Continue patient on Synthroid 75 MCG orally once every day. 3. Fibromyalgia. Continue gabapentin 600 mg orally bedtime and 300 mg the morning. 4. Spondylosis of the cervical spine as well as lumbar spine. Continue gabapentin 600 mg at bedtime and 300 mg in the morning. 5. Vitamin D deficiency. Continue vitamin D supplement. 6. DVT prophylaxis. Continue Lovenox 40 mg subcutaneously every 24 hours. 7. GI prophylaxis. Pepcid 20 mg orally twice every day. 8. Patient is full code. Home on Monday Impression and plan of care have been directed as dictated by the signing physician. Mel Govea nurse practitioner acting as scribe for signing physician. Objective - Vital Signs Vital signs: Vital Signs Temp 98.5 F 01/04/21 07:51 Pulse 93 01/04/21 07:51 Resp 16 01/04/21 07:51 BP 134/71 01/04/21 07:51 Pulse Ox 95 01/04/21 07:51 Intake & Output 01/03/21 01/04/21 01/04/21 18:59 06:59 18:59 Other: Voiding Method Toilet # Voids 3 1 # Bowel Movements 1 1 - Labs CBC & Chem 7: 01/02/21 17:37 01/02/21 17:37
[2021-01-04] MEDS: DEXAMETHASONE SOD PHOSPHATE 10 MG/ML 1 ML VIAL IV SCH (08:38)
[2021-01-04] MEDS ORDERED: CHOLECALCIFEROL 25 MCG (1000 IU) TABLET PO SCH (09:00)
[2021-01-04] MEDS ORDERED: NON FORMULARY DRUG (Glucosam/Chon-Msm1/C/Mang/Bosw [Glucosamine-Chondroitin-Msm Tb] 1 EACH PO SCH (09:00)
[2021-01-04 09:13] LABS: Basophils # (A) 0.03 X 10*3/uL (0.00-0.10); Basophils % (A) 0.5 %; Eosinophils # (A) 0 X 10*3/uL (0.04-0.35); Eosinophils % (A) 0 %; HCT 35.7 % (37.2-46.3); HGB 11.6 g/dL (12.0-15.0); Lymphocytes % (A) 21.3 %; MCH 29.6 pg (27.0-32.0); MCHC 32.5 g/dL (32.0-37.0); MCV 91.1 fL (80.0-97.0); Mean Platelet Volume 11.4 fL (9.5-12.2); Monocytes # (A) 0.99 X 10*3/uL (0.20-1.00); Neutrophils # (A) 4.05 X 10*3/uL (1.80-7.70); Neutrophils % (A) 61.5 %; Platelet Count 239 X 10*3/uL (140-440); RBC 3.92 X 10*6/uL (4.10-5.20); RDW 12.6 % (11.5-14.5); WBC 6.58 X 10*3/uL (4.50-10.00)
[2021-01-04 10:33] LABS: African American GFR (CKD) 98.2 (60.0-200.0); Albumin 3.7 g/dL (3.80-4.90); Albumin/Globulin Ratio 2.18 (1.60-3.17); BUN/Creat Ratio 22.86 Ratio (12.00-20.00); C Reactive Protein 6.2 mg/dL (0.0-0.8); Calcium 8.9 mg/dL (8.7-10.3); Globulin 1.7 g/dL (1.6-3.3); Non-African American GFR(CKD) 84.8 (60.0-200.0); Potassium 4.2 mmol/L (3.5-5.5); Total Bilirubin 0.3 mg/dL (0.3-1.2); Total Protein 5.4 g/dL (6.2-8.2)
[2021-01-04] MEDS: SODIUM CHLORIDE 0.9% 1,000 ML IV SCH (15:45)
[2021-01-04] MEDS: GABAPENTIN 300 MG CAP PO SCH (19:14)
[2021-01-05] MEDS: SODIUM CHLORIDE 0.9% 1,000 ML IV SCH (00:53)
[2021-01-05] MEDS: LEVOTHYROXINE 75 MCG TAB PO SCH (06:10)
--- NOTE | 2021-01-05 08:21 | P.DS ---
Providers Date of admission: 01/02/21 20:20 Expected date of discharge: 01/05/21 Attending physician: Alf Abreu Consults: 01/02/21 20:17 Consult Physician Routine Consulting Provider: Ronni Pineda Consult Reason/Comments: COVID+ Do you want consulting provider notified?: Yes Primary care physician: Alf Abreu Hospital Course: HISTORY OF PRESENT ILLNESS: This is a 75-year-old female one of my patient with a previous medical history significant for hypothyroidism, history of spondylosis of the cervical spine as well as lumbar spine, fibromyalgia, patient developed to have a significant weakness associated with increased bowel pain nausea vomiting and diarrhea, she has loss of taste and smell she was checked with the SARS-COV2 PCR on Monday that came back positive on , patient was started on zinc 220 mg once every day, vitamin C 500 mg once every day vitamin D 1000 units once every day, she was doing fine drinking enough fluid, however she became quite weak and she ended up coming to the emergency department at [facility] for evaluation her d-dimer was elevated she underwent CT angiography of the chest that showed no evidence of pulmonary embolism however it did show interstitial pneumonia o suggestive of Covid pneumonia, she was started on Zithromax 500 mg IV piggyback every 24 hours, Decadron 6 mg IV push every 24 hours, she was placed in droplet precautions with eye protection, pulmonary consultation was obtained as well. 01/04: Patient states she has some nausea. No diarrhea, no emesis. She is drinking lots of fluid. She denies any cough, sputum production, no fever or chills. Patient has been seen by pulmonary medicine with recommendations for Decadron 6 mg IV every 24 hours for 7-10 day course, continue Lovenox. She does not qualify for Remdesivir, antibiotics can be discontinued. Ulnar medicine has signed off her case. She has been afebrile, heart rate 93, blood pressure 134/71, pulse ox 92-95% on room air. Repeat blood work reveals WBC 6.5, hemoglobin 11.6, platelet count 239. Lymphocytes 1.4. Electrolytes and renal function normal. Blood sugar 101. ALT 39. C-reactive protein 6.2. Anticipate discharge home tomorrow. 01/05: Patient is seen today in follow-up. She denies having any nausea or vomiting. No diarrhea. She is tolerating diet. No cough or shortness of breath. No sputum production. She has been afebrile, heart rate 78, blood pressure 1 3472, pulse ox 97% on room air. Patient will be discharged home today in stable condition. DISCHARGE DIAGNOSES: 1. COVID-19 pneumonia 2. Hypothyroidism. 3. Fibromyalgia. 4. Spondylosis of the cervical spine as well as lumbar spine. 5. Vitamin D deficiency. Home Impression and plan of care have been directed as dictated by the signing physician. Mel Govea nurse practitioner acting as scribe for signing physician. Patient Condition at Discharge: Good Plan - Discharge Summary Discharge Rx Participant: No New Discharge Prescriptions: New Dexamethasone 6 mg PO DAILY #7 tablet Ascorbic Acid [Vitamin C] 500 mg PO BID tab Famotidine [Pepcid] 20 mg PO BID #30 tab Continue Multivitamins, Thera [Multivitamin (formulary)] 1 tab PO DAILY Glucosam/Solo-Msm1/C/Filippo/Bosw [Lpeuocjhwhe-Hpjjpfvuqfw-YGQ Tb] 1 tab PO DAILY Levothyroxine Sodium [Synthroid] 75 mcg PO DAILY Gabapentin [Neurontin] 300 mg PO DAILY PRN PRN Reason: Pain Zinc 50 mg PO DAILY Cholecalciferol [Vitamin D3 (25 Mcg = 1000 Iu)] 25 mcg PO DAILY Gabapentin 600 mg PO HS Baclofen [Lioresal] 10 mg PO BID Discharge Medication List Baclofen [Lioresal] 10 mg PO BID 01/02/21 [History] Cholecalciferol [Vitamin D3 (25 Mcg = 1000 Iu)] 25 mcg PO DAILY 01/02/21 [History] Gabapentin 600 mg PO HS 01/02/21 [History] Gabapentin [Neurontin] 300 mg PO DAILY PRN 01/02/21 [History] Glucosam/Solo-Msm1/C/Filippo/Bosw [Ttuwcdztkgd-Wcmxsvkipad-ASD Tb] 1 tab PO DAILY 01/02/21 [History] Levothyroxine Sodium [Synthroid] 75 mcg PO DAILY 01/02/21 [History] Multivitamins, Thera [Multivitamin (formulary)] 1 tab PO DAILY 01/02/21 [History] Zinc 50 mg PO DAILY 01/02/21 [History] Ascorbic Acid [Vitamin C] 500 mg PO BID tab 01/05/21 [Rx] Dexamethasone 6 mg PO DAILY #7 tablet 01/05/21 [Rx] Famotidine [Pepcid] 20 mg PO BID #30 tab 01/05/21 [Rx] Follow up Appointment(s)/Referral(s): [facility],[place] [facility] [NON-STAFF] - (Contact for possible assistance with house cleaning.) Alf Abreu MD [Primary Care Provider] - 1 Week [facility] Visiting Nurse, [NON-STAFF] - 1-2 Days Patient Instructions/Handouts: Famotidine (By mouth), Ascorbic Acid (By mouth), Dexamethasone (By mouth), Coronavirus Disease 2019 (COVID-19), Acute Nausea and Vomiting (DC) Discharge/Stand Alone Forms: Help In The Home Discharge Disposition: HOME SELF-CARE
[2021-01-05 08:24] VITALS: BP 134/72; PULSE 78; RESP 18; TEMP 97.6
[2021-01-05] MEDS: ALBUTEROL HFA INHALER INHALATION SCH ×2 (09:12→12:24)
[2021-01-05] MEDS: MULTIVITAMINS, THERA 1 EACH TAB PO SCH (09:31)
[2021-01-05] MEDS: ZINC SULFATE 220 MG CAP PO SCH (09:31)
[2021-01-05] MEDS: ASCORBIC ACID 500 MG TAB PO SCH (09:31)
[2021-01-05] MEDS: FAMOTIDINE 20 MG TAB PO SCH (09:32)
[2021-01-05] MEDS: DEXAMETHASONE SOD PHOSPHATE 10 MG/ML 1 ML VIAL IV SCH ×2 (09:32→09:34)
[2021-01-05] MEDS: ENOXAPARIN 40 MG/0.4 ML SYRINGE SQ SCH (09:32)
[2021-01-05] MEDS: BACLOFEN 10 MG TAB PO SCH (09:32)
== END 2021-01-05 13:45 | disposition home or self-care (01) | DRG 177 ==
LOC: EC 15:52 → 4SSUR 20:20 → 6NMEDSUR 21:22
PROVIDERS: ADMIT Internal Medicine; ATTEND Internal Medicine
DX: U07.1 COVID-19 (principal); J12.82 Pneumonia due to coronavirus disease 2019; M47.016 Anterior spinal artery compression syndromes, lumbar region; M47.812 Spondylosis without myelopathy or radiculopathy, cervical region; M79.7 Fibromyalgia; D72.810 Lymphocytopenia; E03.9 Hypothyroidism, unspecified; E55.9 Vitamin D deficiency, unspecified; F41.9 Anxiety disorder, unspecified; R09.02 Hypoxemia; R11.10 Vomiting, unspecified; Z79.890 Hormone replacement therapy; Z79.899 Other long term (current) drug therapy; Z82.49 Family history of ischemic heart disease and other diseases of the circulatory system; Z82.5 Family history of asthma and other chronic lower respiratory diseases; Z83.3 Family history of diabetes mellitus; Z90.710 Acquired absence of both cervix and uterus; Z98.890 Other specified postprocedural states
CPT/HCPCS: 36415; 71045; 71275; 80053; 81003; 83605; 83615; 83690; 85025; 85379; 86140; 87635; 93005; 94640; 96361; 96374; 96375; 96376; 99285

== ENCOUNTER 2022-09-02 14:40 | Emergency (ER) | payer MEDICARE, OTHER ==
[2022-09-02 14:55] VITALS: BP 160/81; PULSE 95; RESP 18; TEMP 97.9
--- NOTE | 2022-09-02 15:43 | ED ---
General Adult HPI - General Chief complaint: Recheck/Abnormal Lab/Rx Stated complaint: Wants covid screening Time Seen by Provider: 09/02/22 15:05 Source: patient, RN notes reviewed Mode of arrival: ambulatory Limitations: no limitations - History of Present Illness Initial comments: This a 77-year-old female presents emergency Department requesting COVID-19 testing. Patient states she was exposed. Patient denies any fever cough congestion bodyaches she states she is asymptomatic was concerned. Patient has no GI symptoms or constipation. - Related Data Home Medications Medication Instructions Recorded Confirmed Baclofen [Lioresal] 10 mg PO BID 01/02/21 01/02/21 Cholecalciferol [Vitamin D3 (25 25 mcg PO DAILY 01/02/21 01/02/21 Mcg = 1000 Iu)] Gabapentin 600 mg PO HS 01/02/21 01/02/21 Gabapentin [Neurontin] 300 mg PO DAILY PRN 01/02/21 01/02/21 Glucosam/Solo-Msm1/C/Filippo/Bosw 1 tab PO DAILY 01/02/21 01/02/21 [Nocquavnmkd-Lvfxnkgzdur-JWF Tb] Levothyroxine Sodium [Synthroid] 75 mcg PO DAILY 01/02/21 01/02/21 Multivitamins, Thera [Multivitamin 1 tab PO DAILY 01/02/21 01/02/21 (formulary)] Zinc 50 mg PO DAILY 01/02/21 01/02/21 Previous Rx's Medication Instructions Recorded Ascorbic Acid [Vitamin C] 500 mg PO BID tab 01/05/21 Famotidine [Pepcid] 20 mg PO BID #30 tab 01/05/21 dexAMETHasone [Dexamethasone] 6 mg PO DAILY #7 tablet 01/05/21 Allergies Allergy/AdvReac Type Severity Reaction Status Date / Time codeine Allergy Vomiting Verified 09/02/22 14:55 Review of Systems ROS Statement: Those systems with pertinent positive or pertinent negative responses have been documented in the HPI. ROS Other: All systems not noted in ROS Statement are negative. 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 History of Any Multi-Drug Resistant Organisms: None Reported Past Surgical History: Hysterectomy Past Anesthesia/Blood Transfusion Reactions: No Reported Reaction Past Psychological History: Anxiety Smoking Status: Never smoker Past Alcohol Use History: None Reported Past Drug Use History: None Reported General Exam Limitations: no limitations General appearance: alert, in no apparent distress Head exam: Present: atraumatic, normocephalic, normal inspection Eye exam: Present: normal appearance, PERRL, EOMI. Absent: scleral icterus, conjunctival injection, periorbital swelling ENT exam: Present: normal exam, mucous membranes moist Neck exam: Present: normal inspection, full ROM. Absent: tenderness, meningismus, lymphadenopathy Respiratory exam: Present: normal lung sounds bilaterally. Absent: respiratory distress, wheezes, rales, rhonchi, stridor Cardiovascular Exam: Present: regular rate, normal rhythm, normal heart sounds. Absent: systolic murmur, diastolic murmur, rubs, gallop, clicks Course Vital Signs 09/02/22 14:52 Temperature 97.9 F Pulse Rate 95 Respiratory 18 Rate Blood Pressure 160/81 O2 Sat by Pulse 98 Oximetry Medical Decision Making - Medical Decision Making Patient had testing for RSV, influenza ankle 19 which is negative. Patient discharged in stable condition return parameters were discussed. - Lab Data Lab Results 09/02/22 Range/Units 14:56 Influenza Type A (PCR) Not Detected (Not Detectd) Influenza Type B (PCR) Not Detected (Not Detectd) RSV (PCR) Not Detected (Not Detectd) SARS-CoV-2 (PCR) Not Detected (Not Detectd) Disposition Clinical Impression: Encounter for laboratory testing for COVID-19 virus Disposition: HOME SELF-CARE Condition: Stable Additional Instructions: Please return to the Emergency Department if symptoms worsen or any other concerns. Is patient prescribed a controlled substance at d/c from ED?: No Referrals: lAf Abreu MD [Primary Care Provider] - 1-2 days Time of Disposition: 15:49
== END 2022-09-02 15:57 | disposition home or self-care (01) ==
LOC: EC 14:40
DX: Z20.822 Contact with and (suspected) exposure to COVID-19 (principal); E07.9 Disorder of thyroid, unspecified; Z88.5 Allergy status to narcotic agent; Z79.890 Hormone replacement therapy; Z90.710 Acquired absence of both cervix and uterus
CPT/HCPCS: 87636; 99282; 99283

== ENCOUNTER → 2023-12-25 | Outpatient (CLI) | payer MEDICARE, OTHER ==
--- NOTE | 2023-12-25 18:59 | US ---
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 Indirect Doppler criteria was utilized. FINDINGS: EXAM MEASUREMENTS: RIGHT: Peak Systolic Velocity (PSV) cm/sec ----- Right CCA: 89.9 ----- Right ICA: 65.1 ----- Right ECA: 106.8 ICA/CCA ratio: 1.0 RIGHT: End Diastole cm/sec ----- Right CCA: 10.3 ----- Right ICA: 27.3 ----- Right ECA: 0.0 LEFT: Peak Systolic Velocity (PSV) cm/sec ----- Left CCA: 48.1 ----- Left ICA: 93.6 ----- Left ECA: 82.2 ICA/CCA ratio: 0.9 LEFT: End Diastole cm/sec ----- Left CCA: 7.7 ----- Left ICA: 19.2 ----- Left ECA: 0.0 VERTEBRALS (direction of flow): Right Vertebral: Antegrade Left Vertebral: Antegrade Rhythm: irregular at times PRESSURIZER NOTES: Mild atherosclerotic, no stenosis or elevated velocities noted IMPRESSION: 1. Less than 50% stenosis of the carotid bifurcations. 2. Irregular cardiac rhythm correlate with EKG. Criteria for Assigning % of Stenosis / Diameter reduction (Estimation based on the indirect measurements of the internal carotid artery velocities (ICA PSV). 1. Normal (no stenosis)=ICA PSV < 125 cm/s: ratio < 2.0: ICA EDV<40 cm/s. 2. Less than 50% stenosis=ICA PSV < 125 cm/s: ratio < 2.0: ICA EDV<40 cm/s. 3. 50 to 69% stenosis=ICA PSV of 125 to 230 cm/s: ration 2.0 ? 4.0: ICA EDV 40-100 cm/s. 4. Greater than 70% stenosis to near occlusion= ICA PSV > 230 cm/s: ratio > 4.0: ICA EDV > 100 cm/s. 5. Near occlusion= ICA PSV velocities may be low or undetectable: variable ratio and ICA EDV. 6. Total occlusion=unable to detect flow.
--- NOTE | 2023-12-26 11:13 | CA ---
Transthoracic Echo Report Name: Sheila Rosa Age: 78 Gender: F : 1945 Exam Date: 12/25/2023 13:20 Exam Location: [facility] Ht (in): 67 Wt (lb): 136 Ordering Physician: Alf Abreu MD Attending/Referring Phys: Alf Abreu MD [employer] Engineer Jane Chacko RDCS Procedure CPT: Indications: I34.0 mitral valve regurgitation Cardiac Hx: Technical Quality: Fair Contrast 1: Total Dose (mL): Contrast 2: Total Dose (mL): MEASUREMENTS (Male / Female) Normal Values 2D ECHO LV Diastolic Diameter PLAX 3.6 cm 4.2 - 5.9 / 3.9 - 5.3 cm LV Systolic Diameter PLAX 2.4 cm IVS Diastolic Thickness 1.1 cm 0.6 - 1.0 / 0.6 - 0.9 cm LVPW Diastolic Thickness 1.0 cm 0.6 - 1.0 / 0.6 - 0.9 cm LV Relative Wall Thickness 0.6 RV Internal Dim ED PLAX 2.7 cm LA Volume 28.9 cm??? 18 - 58 / 22 - 52 cm??? LA Volume Index 17.0 cm???/m??? 16 - 28 cm???/m??? M-MODE Aortic Root Diameter MM 2.5 cm LA Systolic Diameter MM 2.5 cm LA Ao Ratio MM 1.0 AV Cusp Separation MM 1.6 cm DOPPLER AV Peak Velocity 118.0 cm/s AV Peak Gradient 5.6 mmHg AV Mean Velocity 74.5 cm/s AV Mean Gradient 2.5 mmHg AV Velocity Time Integral 23.3 cm AI Peak Velocity 524.6 cm/s AI Peak Gradient 110.1 mmHg AI Pressure Half Time 466.9 ms LVOT Peak Velocity 81.1 cm/s LVOT Peak Gradient 2.6 mmHg LVOT Velocity Time Integral 17.7 cm MV Area PHT 4.8 cm??? Mitral E Point Velocity 78.0 cm/s Mitral A Point Velocity 57.4 cm/s Mitral E to A Ratio 1.4 MV Deceleration Time 158.2 ms MV E' Velocity 7.3 cm/s Mitral E to MV E' Ratio 10.6 TR Peak Velocity 255.3 cm/s TR Peak Gradient 26.1 mmHg Right Ventricular Systolic Press 30.8 mmHg FINDINGS Left Ventricle Left ventricular wall thickness normal. Left ventricular cavity size normal. Normal left ventricular systolic function with no obvious regional wall motion abnormalities. Left ventricular ejection fraction is estimated at 55-60 %. Right Ventricle Normal right ventricular size. Right ventricular systolic pressure within normal limits. Right Atrium Normal right atrial size. Left Atrium Normal left atrial size. Mitral Valve Structurally normal mitral valve. Mitral annular calcification. Trace mitral regurgitation. Aortic Valve Trileaflet aortic valve. No aortic stenosis. Trace to mild aortic regurgitation. Tricuspid Valve Structurally normal tricuspid valve. Mild tricuspid regurgitation. Pulmonic Valve Structurally normal pulmonic valve. Pericardium No pericardial effusion. Aorta Normal size aortic root and proximal ascending aorta. CONCLUSIONS Normal LV size and systolic function with mild concentric LVH. Mild mitral tricuspid and mild to moderate aortic insufficiency. There is mitral annular calcification and aortic sclerosis. There is aortic sclerosis and mitral annular calcification. There is no pulmonary hypertension and no pericardial effusion. Previewed by: Dr. Emily Barfield MD (Electronically Signed) Final Date: 26 December 2023 11:12
== END | disposition home or self-care (01) ==
LOC: RADUSWWP 12:14
PROVIDERS: ATTEND Internal Medicine
DX: I65.23 Occlusion and stenosis of bilateral carotid arteries (principal); I70.0 Atherosclerosis of aorta; I08.0 Rheumatic disorders of both mitral and aortic valves; Z13.6 Encounter for screening for cardiovascular disorders
CPT/HCPCS: 93306; 93880